=== PATIENT | female | born 1990 | race Caucasian/White ===

== ENCOUNTER 2025-03-03 22:23 | Emergency (ER) | payer OTHER ==
[2025-03-03 22:55] VITALS: BP 135/86; PULSE 92
== END 2025-03-03 23:19 | disposition home or self-care (01) ==
LOC: FB.ED 22:23
DX: S69.92XA Unspecified injury of left wrist, hand and finger(s), initial encounter (principal); E78.00 Pure hypercholesterolemia, unspecified; Z79.82 Long term (current) use of aspirin; Z79.899 Other long term (current) drug therapy; Z86.73 Personal history of transient ischemic attack (TIA), and cerebral infarction without residual deficits; X50.1XXA Overexertion from prolonged static or awkward postures, initial encounter; Y93.89 Activity, other specified
CPT/HCPCS: 73110-LT; 99283